=== PATIENT | female | born 1975 | race Caucasian/White ===

== ENCOUNTER 2023-06-25 15:32 | Outpatient (CLI) | payer OTHER, SELFPAY | END 2023-06-25 15:33 | disposition home or self-care (01) | PROVIDERS: Visit Provider Family Medicine | DX: L65.9 Nonscarring hair loss, unspecified (principal); Z13.220 Encounter for screening for lipoid disorders; Z11.59 Encounter for screening for other viral diseases | CPT/HCPCS: 80053; 80061; 84443; 86803 ==

== ENCOUNTER 2024-02-15 11:36 | Outpatient (CLI) | payer OTHER, SELFPAY | END 2024-02-15 11:37 | disposition home or self-care (01) | LOC: FRMREF 11:37 | PROVIDERS: PCP Family Medicine; Visit Provider Physician Assistant Medical | DX: R50.9 Fever, unspecified (principal); J02.9 Acute pharyngitis, unspecified | CPT/HCPCS: 86618 ==

== ENCOUNTER 2024-12-09 09:05 | Outpatient (CLI) | payer OTHER, SELFPAY | END 2024-12-09 09:06 | disposition home or self-care (01) | LOC: NFLDREF 12-14 20:42 | PROVIDERS: PCP Family Medicine; Referring Provider Family Medicine; Visit Provider Physician Assistant Medical | DX: E03.8 Other specified hypothyroidism (principal) | CPT/HCPCS: 84439; 84443 ==